=== PATIENT | male | born 1945 | race Caucasian/White ===

== ENCOUNTER → 2017-05-01 | Outpatient (CLI) | payer MEDICARE, OTHER | END | disposition home or self-care (01) | LOC: GMAB 11:00 | PROVIDERS: ATTEND Family Medicine | DX: Z12.5 Encounter for screening for malignant neoplasm of prostate (principal); I10 Essential (primary) hypertension | CPT/HCPCS: 84443; G0103 ==

== ENCOUNTER → 2017-10-02 | Outpatient (CLI) | payer MEDICARE, OTHER ==
--- NOTE | 2017-10-03 08:35 | CT ---
EXAM DESCRIPTION: Abdomen/Pelvis w/wo Contrast CLINICAL HISTORY: RUQ PAIN COMPARISON: None Available TECHNIQUE: CT of the abdomen and Pelvis was performed with and without IV contrast. This exam was performed according to our departmental dose-optimization program, which includes automated exposure control, adjustment of the mA and/or kV according to patient size and/or use of iterative reconstruction technique. FINDINGS: Pre-IV contrast images show mild dependent atelectasis in the lung bases. The gallbladder is surgically absent. There is no urinary tract calculus or hydronephrosis. Following IV contrast administration, no abdominal aortic aneurysm or dissection is identified. No hiatal hernia or gastric wall thickening is seen. There are 2 cysts in the liver, the largest measuring approximately 2.7 cm diameter. The liver, spleen, pancreas, adrenals and kidneys are otherwise unremarkable. No dilated small bowel loops or mesenteric inflammation. No bladder wall thickening. The prostate is at the upper limits of normal size, measuring just under 5 cm transverse diameter. No colonic wall thickening or pericolonic inflammation. Degenerative disc disease is noted at L5-S1. IMPRESSION: Evidence of prior cholecystectomy, but no biliary duct dilation, pancreatitis, gastric wall thickening or additional abnormality to explain patient symptoms. Hepatic cysts and other nonacute findings as detailed above. Electronically signed by: Adam Escalante MD 10/03/2017 8:34 AM SMOG TECHNICIAN
== END | disposition home or self-care (01) ==
LOC: CT 08:29
PROVIDERS: ATTEND Family Medicine
DX: K76.89 Other specified diseases of liver (principal); R10.11 Right upper quadrant pain

== ENCOUNTER → 2017-10-14 | Outpatient (CLI) | payer MEDICARE, OTHER | END | disposition home or self-care (01) | LOC: GMAB 11:41 | PROVIDERS: ATTEND Family Medicine | DX: R10.11 Right upper quadrant pain (principal) ==

== ENCOUNTER 2018-04-08 05:59 | Day surgery (SDC) | payer MEDICARE, OTHER ==
[2018-04-08] MEDS ORDERED: LIDOCAINE 1% 10 ML VIAL INJ ONE (06:00)
[2018-04-08] MEDS ORDERED: LACTATED RINGERS 1,000 ML ONE (06:00)
[2018-04-08] MEDS ORDERED: PROPOFOL 200 MG/20 ML VIAL IV ONE (06:00)
--- NOTE | 2018-04-08 09:47 | OP ---
DATE OF PROCEDURE: 04/08/18 PREOPERATIVE DIAGNOSIS: 1. Average risk colon cancer screening. The patient's last colonoscopy was 2013, but the prep was suboptimal and the patient needs repeat screening exam now. 2. Incidental right upper quadrant pain. POSTOPERATIVE DIAGNOSIS: 1. Small descending colon polyp. 2. Diverticulosis. PROCEDURE: 1. Colonoscopy plus polypectomy. SURGEON: Dean Pastrana MD. COMPLICATIONS: None apparent. BLOOD LOSS: None. MEDICATIONS: Monitored anesthesia care. DESCRIPTION OF PROCEDURE: Informed consent was obtained prior to sedation. The preprocedure cardiopulmonary assessment was satisfactory. The patient was placed in the left lateral decubitus position and was sedated. A digital rectal exam was unremarkable. The tip of the Olympus colonoscope was inserted in the rectum and guided over to the cecum. The cecum was identified by locating the ileocecal valve and appendiceal orifice. Prep was good today. The mucosa of the cecum, ascending colon, hepatic flexure, transverse colon, splenic flexure, descending colon and sigmoid colon was closely examined. Direct and retroflexed views of the rectum were obtained. The patient had one small 3 mm sessile polyp in the descending colon. This was removed with a cold snare and recovered. The patient also had a few sigmoid diverticula. Otherwise , the colonoscopy was unremarkable. The procedure was then terminated. RECOMMENDATIONS: Followup polyp pathology. Determination will then be made about the need and/or timing of next colonoscopy. #[id number] cc: Hema Reed MD [facility]
[2018-04-08 10:11] VITALS: BP 192/96; TEMP 97; O2SAT 97
== END 2018-04-08 10:05 | disposition home or self-care (01) ==
LOC: AMB 05:59
PROVIDERS: ATTEND Internal Medicine Gastroenterology
DX: Z12.11 Encounter for screening for malignant neoplasm of colon (principal); R10.11 Right upper quadrant pain; D12.4 Benign neoplasm of descending colon; K57.30 Diverticulosis of large intestine without perforation or abscess without bleeding; I10 Essential (primary) hypertension; I25.10 Atherosclerotic heart disease of native coronary artery without angina pectoris; K21.9 Gastro-esophageal reflux disease without esophagitis; F17.220 Nicotine dependence, chewing tobacco, uncomplicated; Z86.010 Personal history of colon polyps; Z79.82 Long term (current) use of aspirin; Z79.899 Other long term (current) drug therapy
CPT/HCPCS: 00812; 45385; 88305; J3490; J7120

== ENCOUNTER → 2018-07-13 | Outpatient (CLI) | payer MEDICARE, OTHER | LOC: GMAE 11:04 | PROVIDERS: ATTEND Family Medicine | DX: I10 Essential (primary) hypertension (principal) ==

== ENCOUNTER → 2018-08-24 | Outpatient (CLI) | payer MEDICARE, OTHER | LOC: GMAE 13:11 | PROVIDERS: ATTEND Family Medicine | DX: J30.9 Allergic rhinitis, unspecified (principal) ==

== ENCOUNTER 2018-11-09 05:04 | Day surgery (SDC) | payer MEDICARE, OTHER ==
[2018-11-09] MEDS ORDERED: TROP 1%/CYCLOPEN 1%/PHENYL 2% DROPS ONE (05:57)
[2018-11-09] MEDS ORDERED: PROPARACAINE 0.5% OPHTH SOL 15 ML BTTL ONE (05:57)
[2018-11-09] MEDS ORDERED: MIDAZOLAM INJ 2 MG/2 ML VIAL ONE (07:12)
[2018-11-09] MEDS: PROPARACAINE 0.5% OPHTH SOL 15 ML BTTL LEFT_EYE ONE (07:25)
[2018-11-09] MEDS: DEXAMETHASONE 0.1% OPHTH SOL 1 DROP LEFT_EYE ONE ×2 (07:34→07:58)
[2018-11-09] MEDS: TOBRAMYCIN SULF 0.3 % OPHT SOL 1 DROP LEFT_EYE ONE ×2 (07:34→07:58)
[2018-11-09] MEDS: BRIMONIDINE 0.2% OPHTH DROPS LEFT_EYE ONE ×2 (07:34→07:58)
[2018-11-09] MEDS: LIDOCAINE 1% 2 ML VIAL INJ ONE ×2 (07:34→07:45)
== END 2018-11-09 08:41 | disposition home or self-care (01) ==
LOC: AMB 05:04
PROVIDERS: ATTEND Ophthalmology
DX: H26.9 Unspecified cataract (principal); I10 Essential (primary) hypertension; E66.9 Obesity, unspecified; F17.220 Nicotine dependence, chewing tobacco, uncomplicated; Z79.82 Long term (current) use of aspirin; Z79.899 Other long term (current) drug therapy
CPT/HCPCS: 00142; 66984; J2250

== ENCOUNTER → 2018-12-03 | Outpatient (CLI) | payer MEDICARE, OTHER | LOC: GMAE 11:19 | PROVIDERS: ATTEND Family Medicine | DX: R10.13 Epigastric pain (principal) ==

== ENCOUNTER → 2018-12-04 | Outpatient (CLI) | payer MEDICARE, OTHER ==
--- NOTE | 2018-12-04 13:53 | US ---
EXAM DESCRIPTION: Abdomen,Complete: Ultrasound. CLINICAL HISTORY: EPIGASTRIC PAIN. Prior cholecystectomy. COMPARISON: None Available. TECHNIQUE: Transabdominal scannin-dimensional and Doppler modes. FINDINGS: Gallbladder: Gallbladder surgical removed. No abnormal fluid. Nontender. Common bile duct: 6.5 mm caliber, not dilated postcholecystectomy. Liver: 2.2 x 1.9 x 1.6 cm anechoic cyst with circumscribed patel and enhanced sound transmission in the left lobe. 3.5 x 3.1 x 2.6 cm anechoic mass with circumscribed margins and enhanced sound transmission in the right lobe. Vascularity is unremarkable. Smooth capsule with no ascites. Intrahepatic ducts are normal caliber.. Pancreas: Echogenicity increased, may be related to steatosis. Pancreatic duct not seen. IVC: visualized; normal caliber. Spleen normal echogenicity; long axis measurement is 10.2 cm. Right kidney: 10.9 cm long axis. No cortical thinning with age-related changes and echogenicity. No hydronephrosis. Left kidney: 10.8 cm long axis. No cortical thinning with normal echogenicity. No hydronephrosis. Age-related changes. Aorta: 2.2 cm diameter proximally and 2.8 cm distally, indicating ectasia. Atherosclerotic changes of the intima. IMPRESSION: 1. Prior cholecystectomy. Mild dilation of the common bile duct but physiologic with gallbladder absent. No ascites. 2. Multiple hepatic cysts with no complications. Liver otherwise unremarkable. Possible steatosis of the pancreas but duct not seen. Spleen is unremarkable. 3. Bilateral kidneys showing age-related changes in otherwise unremarkable. 4. IVC normal caliber. Abdominal aorta ectasia: Please see below*. *2.8 cm ectasia No follow-up imaging is recommended. Reference: J Vasc Surg 2009 Oct;50(4 Suppl):S2-49. Electronically signed by: German Lazar MD 12/04/2018 1:51 PM WAREHOUSE ADMINISTRATOR
== END ==
LOC: US 08:30
PROVIDERS: ATTEND Family Medicine
DX: R10.13 Epigastric pain (principal); Z90.49 Acquired absence of other specified parts of digestive tract; K76.89 Other specified diseases of liver; I77.819 Aortic ectasia, unspecified site

== ENCOUNTER → 2019-10-13 | Outpatient (CLI) | payer MEDICARE, OTHER | LOC: GMAE 10:41 | PROVIDERS: ATTEND Family Medicine | DX: Z12.5 Encounter for screening for malignant neoplasm of prostate (principal); I10 Essential (primary) hypertension | CPT/HCPCS: 84443; G0103 ==

== ENCOUNTER → 2020-11-02 | Outpatient (CLI) | payer MEDICARE, OTHER | LOC: GMAE 10:46 | PROVIDERS: ATTEND Family Medicine | DX: Z12.5 Encounter for screening for malignant neoplasm of prostate (principal); I10 Essential (primary) hypertension | CPT/HCPCS: 84443; G0103 ==